=== PATIENT | female | born 1950 | race Caucasian/White ===

== ENCOUNTER 2016-10-12 14:43 | Inpatient (IN) | payer MEDICARE ==
[~2016-10-12] VITALS: Ht 165.1 cm; Wt 54.0 kg
[2016-10-12] MEDS ORDERED: ASPIRIN 325 MG TABLET PO ONE (15:00)
--- NOTE | 2016-10-12 15:01 | RAD ---
EXAM: Chest, single view. HISTORY: Chest pain. COMPARISON: None. FINDINGS: A frontal view of the chest is obtained. There is no infiltrate, effusion or pneumothorax. The heart is normal in size. There are large calcified right hilar granulomas. There is a mild mid thoracic superior endplate depression. IMPRESSION: No acute pulmonary finding.
[2016-10-12 15:20] LABS: BASO # 0.1 x10^3/uL (0.0-0.2); BASO % 1 % (0-3); EOS % 1 % (0-3); HEMATOCRIT 43.7 % (36.0-47.0); LYMPH # 1.1 x10^3/uL (1.0-4.8); LYMPH % 10 % (24-48); MEAN CORPUSCULAR HEMOGLOBIN 32 pg (25-35); MEAN CORPUSCULAR HGB CONC 34 g/dL (31-37); MEAN CORPUSCULAR VOLUME 94 fL (79-100); MONO % 8 % (0-9); NEUT % 81 % (31-73); PLATELET COUNT 289 x10^3/uL (140-400); RED BLOOD COUNT 4.66 x10^6/uL (3.50-5.40); RED CELL DISTRIBUTION WIDTH 13.6 % (11.5-14.5); WHITE BLOOD COUNT 11.9 x10^3/uL (4.0-11.0)
[2016-10-12 15:27] LABS: CALCIUM 9.2 mg/dL (8.5-10.1); CREATININE 0.7 mg/dL (0.6-1.0); POTASSIUM 3.8 mmol/L (3.5-5.1)
--- NOTE | 2016-10-12 15:36 | PHYS DOC ---
Past Medical History Past Medical History: NC, Pneumonia Past Surgical History: Appendectomy, Hysterectomy, Other Additional Past Surgical Histo: amputation 2 toes r foot, r knee ortho x2, Alcohol Use: Heavy Drug Use: None Adult General Chief Complaint Chief Complaint: CHEST PAIN HPI HPI This 66-year-old female who presents with an episode of chest pain just prior to arrival in which she states she felt some more and this and then significant left upper chest pain. EMS was called and administered a full aspirin and nitroglycerin and her pain resolved upon arrival. He currently states she is pain-free at this time. She states her pain was similar to previous pain she had with her NC back in 2004. Patient underwent a heart catheterization at that time that did reveal some sclerosed posterior vessels but she did not have any stents placed. She did not follow-up with cardiology after this event and states she was otherwise well and chest pain-free until this episode. Patient does state she currently smokes. She does have history of hypertension as well. Review of Systems Review of Systems Constitutional: Denies fever or chills [] Eyes: Denies change in visual acuity, redness, or eye pain [] HENT: Denies nasal congestion or sore throat [] Respiratory: Denies cough or shortness of breath [] Cardiovascular: No additional information not addressed in HPI [] GI: Denies abdominal pain, nausea, vomiting, bloody stools or diarrhea [] : Denies dysuria or hematuria [] Musculoskeletal: Denies back pain or joint pain [] Integument: Denies rash or skin lesions [] Neurologic: Denies headache, focal weakness or sensory changes [] Endocrine: Denies polyuria or polydipsia [] Current Medications Current Medications Current Medications Medications (Trade) Dose Ordered Sig/Nicole Start Time Stop Time Status Last Admin Dose Admin Acetaminophen (Tylenol) 650 mg PRN Q4HRS PRN 10/12/16 16:00 10/13/16 15:59 Acetaminophen/ Hydrocodone Bitart (Lortab 5/325) 1 tab PRN TID PRN 10/12/16 16:15 Aspirin 325 mg 325 mg 1X ONCE 10/12/16 15:00 10/12/16 15:01 DC Docusate Sodium (Colace) 100 mg DAILY 10/13/16 09:00 Heparin Sodium (Porcine) 1,300 unit PRN Q6HRS PRN 10/12/16 16:00 10/12/16 16:19 1,300 UNIT Heparin Sodium/ Dextrose 500 ml @ 0 mls/hr CONT PRN 10/12/16 16:00 10/12/16 16:22 12 MLS/HR Info (Anti-Coagulation Monitoring By Pharmacy) 1 each PRN DAILY PRN 10/12/16 16:00 Metoprolol Tartrate (Lopressor) 12.5 mg BID 10/12/16 21:00 Morphine Sulfate 2 mg PRN Q2HR PRN 10/12/16 16:15 Nitroglycerin (Nitrostat) 0.4 mg PRN Q5MIN PRN 10/12/16 16:00 10/13/16 15:59 Ondansetron HCl (Zofran) 4 mg PRN Q6HRS PRN 10/12/16 16:07 Ondansetron HCl 4 mg 4 mg PRN Q8HRS PRN 10/12/16 16:00 10/12/16 16:10 DC Sodium Chloride (Iv Sodium Chloride 0.9% 1000ml Bag) 1,000 ml @ 100 mls/hr Q10H 10/12/16 16:30 10/13/16 16:29 Allergies Allergies Allergies Coded Allergies Type Severity Reaction Last Updated Verified Sulfa (Sulfonamide Antibiotics) Allergy Intermediate 10/12/16 Yes Physical Exam Physical Exam Constitutional: Well developed, well nourished, no acute distress, non-toxic appearance. [] HENT: Normocephalic, atraumatic, bilateral external ears normal, oropharynx moist, no oral exudates, nose normal. [] Eyes: PERRLA, EOMI, conjunctiva normal, no discharge. [] Neck: Normal range of motion, no tenderness, supple, no stridor. [] Cardiovascular:Heart rate regular rhythm, no murmur [] Lungs & Thorax: Bilateral breath sounds clear to auscultation [] Abdomen: Bowel sounds normal, soft, no tenderness, no masses, no pulsatile masses. [] Skin: Warm, dry, no erythema, no rash. [] Back: No tenderness, no CVA tenderness. [] Extremities: No tenderness, no cyanosis, no clubbing, ROM intact, no edema. [] Neurologic: Alert and oriented X 3, normal motor function, normal sensory function, no focal deficits noted. [] Psychologic: Affect normal, judgement normal, mood normal. [] Current Patient Data Vital Signs Vital Signs Date Time Temp Pulse Resp B/P Pulse Ox O2 Delivery O2 Flow Rate FiO2 10/12/16 14:51 98.0 70 18 127/72 96 Room Air 98.0 Lab Values Laboratory Tests Test 10/12/16 13:05 White Blood Count 11.9x10^3/uL (4.0-11.0) H Red Blood Count 4.66x10^6/uL (3.50-5.40) Hemoglobin 15.0g/dL (12.0-15.5) Hematocrit 43.7% (36.0-47.0) Mean Corpuscular Volume 94fL (79-100) Mean Corpuscular Hemoglobin 32pg (25-35) Mean Corpuscular Hemoglobin Concent 34g/dL (31-37) Red Cell Distribution Width 13.6% (11.5-14.5) Platelet Count 289x10^3/uL (140-400) Neutrophils (%) (Auto) 81% (31-73) H Lymphocytes (%) (Auto) 10% (24-48) L Monocytes (%) (Auto) 8% (0-9) Eosinophils (%) (Auto) 1% (0-3) Basophils (%) (Auto) 1% (0-3) Neutrophils # (Auto) 9.6x10^3uL (1.8-7.7) H Lymphocytes # (Auto) 1.1x10^3/uL (1.0-4.8) Monocytes # (Auto) 1.0x10^3/uL (0.0-1.1) Eosinophils # (Auto) 0.1x10^3/uL (0.0-0.7) Basophils # (Auto) 0.1x10^3/uL (0.0-0.2) Sodium Level 139mmol/L (136-145) Potassium Level 3.8mmol/L (3.5-5.1) Chloride Level 101mmol/L (98-107) Carbon Dioxide Level 27mmol/L (21-32) Anion Gap 11 (6-14) Blood Urea Nitrogen 11mg/dL (7-20) Creatinine 0.7mg/dL (0.6-1.0) Estimated GFR (Cockcroft-Gault) 84.0 Glucose Level 135mg/dL (70-99) H Calcium Level 9.2mg/dL (8.5-10.1) Troponin I Quantitative 0.542ng/mL (0.000-0.055) Laboratory Tests 10/12/16 13:05 Laboratory Tests 10/12/16 13:05 EKG EKG EKG as interpreted by me shows a sinus rhythm with a rate of 63 bpm. There is no obvious ischemic findings on this EKG. Intervals are normal. There is no ectopy. Radiology/Procedures Radiology/Procedures Portable one view of the chest as interpreted by me does not demonstrate an acute cardiopulmonary process. Course & Med Decision Making Course & Med Decision Making Pertinent Labs and Imaging studies reviewed. (See chart for details) 66-year-old female is having an episode of chest pain. Troponin is elevated at 0.5. Her EKG does not reveal any acute abnormality. Her portable view her chest was also negative for any acute abnormality. I discussed the case with the shopping centre manager, Dr. Crawley, who agreed to start heparin and he will likely perform a heart catheterization in the morning. I additionally ordered metoprolol 12.5 mg twice a day for the patient. Patient is in no acute distress at this time and will be admitted to the [facility] for further evaluation. I discussed the case with the hospitalist, Dr. Tidwell, who agreed to admit the patient for further evaluation and treatment for chest pain and NSTEMI. Dragon Disclaimer Dragon Disclaimer This electronic medical record was generated, in whole or in part, using a voice recognition dictation system. Departure Departure Impression: Primary Impression: Chest pain Additional Impression: NSTEMI (non-ST elevated myocardial infarction) Disposition: ADMITTED INPATIENT Admitting Physician: Alexa Tidwell Condition: STABLE Problem Qualifiers TIN HANNAH DO Oct 12, 2016 15:36
[2016-10-12] MEDS ORDERED: HEPARIN for IV BOLUS 10,000 UNIT/10 ML VIAL. IV PRN (16:00)
[2016-10-12] MEDS ORDERED: NITROGLYCERIN SUBLINGUAL 0.4 MG BOTTLE OF 25. SL PRN (16:00)
[2016-10-12] MEDS ORDERED: ACETAMINOPHEN 325 MG TABLET. PO PRN (16:00)
[2016-10-12] MEDS ORDERED: ONDANSETRON PF 4 MG/2 ML VIAL. IV PRN ×2 (16:00→16:07)
[2016-10-12] MEDS ORDERED: MORPHINE SULFATE 2 MG/ML DISP.SYRIN. IV PRN (16:15)
[2016-10-12] MEDS ORDERED: HYDROCODONE/APAP 5/325MG TABLET. PO PRN (16:15)
--- NOTE | 2016-10-12 16:15 | PDOC1 ---
History and Physical Date of Admission Date of Admission DATE: 10/12/16 TIME: 16:09 Identification/Chief Complaint Chief Complaint chest pains at rest Source Source: Chart review, Patient History of Present Illness History of Present Illness 66 y/o male who had hx MT about 12 yrs ago (2014), had a cardiac cath but no stents placed, but found atherosclerosis and never followed up or took any of the dc meds that she was advised to take, She has been CP free x 10 yrs until today, left sided upper chest pain, felt warm, lightheaded, lasted 20 mins and relieved by nTG and morphine at ER> NO real radiation, happened at rest VS ok Smoker, drinks 3 beers a day, claims has changed her diet, Denies fam hx of ACS or its equivalent (Dm etc) She claims she did not take her dc meds bec she was placed on a statin and she had a "busted liver" from an accident in younger yrs and she knew statin was metabolized in liver, She does not even take a baby asa. She does smoke < 1ppday, 3 beers a day EKG ok, CXR ok, but first CE trop 0.5. Started on heparin gtt given concerning story and risk factors/past hx Past Medical History Cardiovascular: CAD, Hyperlipidemia Past Surgical History Past Surgical History: Other (cardiac cath with no stenting) Family History Family History: No Significant Social History Smoke: <1 pack per day ALCOHOL: heavy Drugs: None Current Problem List Problem List Problems Medical Problems: (1) Chest pain Status: Acute Problems: Current Medications Current Medications Current Medications Aspirin 325 mg 325 mg 1X ONCE PO ; Start 10/12/16 at 15:00; Stop 10/12/16 at 15 :01; Status DC Heparin Sodium/ Dextrose 500 ml @ 0 mls/hr CONT PRN IV SEE I/O RECORD; Start at 16:00 Heparin Sodium (Porcine) 1,300 unit PRN Q6HRS PRN IV FOR UFH LEVEL LESS THAN 0.2; Start 10/12/16 at 16:00 Ondansetron HCl 4 mg 4 mg PRN Q8HRS PRN IV NAUSEA/VOMITING; Start 10/12/16 at 16:00; Stop 10/13/16 at 15:59 Sodium Chloride (Iv Sodium Chloride 0.9% 1000ml Bag) 1,000 ml @ 100 mls/hr Q10H IV ; Start 10/12/16 at 16:30; Stop 10/13/16 at 16:29 Acetaminophen (Tylenol) 650 mg PRN Q4HRS PRN PO FEVER; Start 10/12/16 at 16:00 ; Stop 10/13/16 at 15:59 Nitroglycerin (Nitrostat) 0.4 mg PRN Q5MIN PRN SL CHEST PAIN; Start 10/12/16 at 16:00; Stop 10/13/16 at 15:59 Info (Anti-Coagulation Monitoring By Pharmacy) 1 each PRN DAILY PRN MC SEE COMMENTS; Start 10/12/16 at 16:00 Allergies Allergies: Coded Allergies: Sulfa (Sulfonamide Antibiotics) (Verified Allergy, Intermediate, 10/12/16) ROS General: YES: Appetite, Chills, Fatigue, Malaise, Night Sweats, Other PSYCHOLOGICAL ROS: No: Anxiety, Behavioral Disorder, Concentration difficultie , Decreased libido, Depression, Disorientation, Hallucinations, Hostility, Irritablity, Memory difficulties, Mood Swings, Obsessive thoughts, Other, Physical abuse, Sexual abuse, Sleep disturbances, Suicidal ideation Eyes: No Blurry vision, No Decreased vision, No Double vision, No Dry eyes, No Excessive tearing, No Eye Pain, No Itchy Eyes, No Loss of vision, No Other, No Photophobia, No Scotomata, No Uses contacts, No Uses glasses HEENT: No: Epistaxis, Heacaches, Hearing change, Nasal congestion, Nasal discharge, Oral lesions, Other, Sinus pain, Sneezing, Snoring, Sore Throat, Tinnitus, Vertigo, Visual Changes, Vocal changes ALLERGY AND IMMUNOLOGY: No: Hives, Insect Bite Sensitivity, Itchy/Watery Eyes, Nasal Congestion, Other, Post Nasal Drip, Seasonal Allergies Breast: No New/Changing Breast Lumps, No Nipple changes, No Nipple discharge, No Other Respiratory: No: Cough, Hemoptysis, Orthopnea, Other, Pleuritic Pain, SOB with excertion, Shortness of breath, Sputum Changes, Stridor, Tachypnea, Wheezing Cardiovascular: yes Chest Pain, yes Lt Headedness Gastrointestinal: No Abdominal Pain, No Constipation, No Diarrhea, No Hematochezia, No Melena, No Nausea, No Other, No Vomiting Genitourinary: No , No , No , No , No , No , No , No Discharge, No Dysuria, No Flank Pain, No Frequency, No Hematuria, No Incontinence, No Other, No Pain, No Retention, No Urgency Musculoskeletal: No Gait Disturbance, No Joint Pain, No Joint Stiffness, No Joint Swelling, No Muscle Pain, No Muscular Weakness, No Other, No Pain In:, No Swelling In: Neurological: No Behavorial Changes, No Bowel/Bladder ControlChng, No Confusion , No Dizziness, No Gait Disturbance, No Headaches, No Impaired Coord/balance, No Memory Loss, No Numbness/Tingling, No Other, No Seizures, No Speech Problems , No Tremors, No Visual Changes, No Weakness Skin: No Acne, No Dry Skin, No Eczema, No Hair Changes, No Lumps, No Mole Changes, No Mottling, No Nail Changes, No Other, No Pruritus, No Rash, No Skin Lesion Changes Physical Exam General: Alert, Oriented X3, Cooperative, No acute distress HEENT: Atraumatic, PERRLA, EOMI, Mucous membr. moist/pink Lungs: Clear to auscultation, Normal air movement Heart: S1S2, RRR, no thrills, no rubs, no gallops, no murmurs Cardiovascular: S1, S2 Breasts: Normal Rectal Exam: not examined PELVIC: Nml ext genitalia Extremities: No clubbing, No cyanosis, No edema, Normal pulses, No tenderness/ swelling Skin: No rashes, No breakdown, No significant lesion Neuro: Normal gait, Normal speech, Strength at 5/5 X4 ext, Normal tone, Sensation intact, Cranial nerves 3-12 NL, Reflexes 2+ Psych/Mental Status: Mental status NL, Mood NL Vitals Vitals Vital Signs Date Time Temp Pulse Resp B/P Pulse Ox O2 Delivery O2 Flow Rate FiO2 10/12/16 14:51 98.0 70 18 127/72 96 Room Air 98.0 Labs Labs Laboratory Tests Test 10/12/16 13:05 White Blood Count 11.9x10^3/uL (4.0-11.0) Red Blood Count 4.66x10^6/uL (3.50-5.40) Hemoglobin 15.0g/dL (12.0-15.5) Hematocrit 43.7% (36.0-47.0) Mean Corpuscular Volume 94fL (79-100) Mean Corpuscular Hemoglobin 32pg (25-35) Mean Corpuscular Hemoglobin Concent 34g/dL (31-37) Red Cell Distribution Width 13.6% (11.5-14.5) Platelet Count 289x10^3/uL (140-400) Neutrophils (%) (Auto) 81% (31-73) Lymphocytes (%) (Auto) 10% (24-48) Monocytes (%) (Auto) 8% (0-9) Eosinophils (%) (Auto) 1% (0-3) Basophils (%) (Auto) 1% (0-3) Neutrophils # (Auto) 9.6x10^3uL (1.8-7.7) Lymphocytes # (Auto) 1.1x10^3/uL (1.0-4.8) Monocytes # (Auto) 1.0x10^3/uL (0.0-1.1) Eosinophils # (Auto) 0.1x10^3/uL (0.0-0.7) Basophils # (Auto) 0.1x10^3/uL (0.0-0.2) Sodium Level 139mmol/L (136-145) Potassium Level 3.8mmol/L (3.5-5.1) Chloride Level 101mmol/L (98-107) Carbon Dioxide Level 27mmol/L (21-32) Anion Gap 11 (6-14) Blood Urea Nitrogen 11mg/dL (7-20) Creatinine 0.7mg/dL (0.6-1.0) Estimated GFR (Cockcroft-Gault) 84.0 Glucose Level 135mg/dL (70-99) Calcium Level 9.2mg/dL (8.5-10.1) Troponin I Quantitative 0.542ng/mL (0.000-0.055) Laboratory Tests Test 10/12/16 13:05 White Blood Count 11.9x10^3/uL (4.0-11.0) Red Blood Count 4.66x10^6/uL (3.50-5.40) Hemoglobin 15.0g/dL (12.0-15.5) Hematocrit 43.7% (36.0-47.0) Mean Corpuscular Volume 94fL (79-100) Mean Corpuscular Hemoglobin 32pg (25-35) Mean Corpuscular Hemoglobin Concent 34g/dL (31-37) Red Cell Distribution Width 13.6% (11.5-14.5) Platelet Count 289x10^3/uL (140-400) Neutrophils (%) (Auto) 81% (31-73) Lymphocytes (%) (Auto) 10% (24-48) Monocytes (%) (Auto) 8% (0-9) Eosinophils (%) (Auto) 1% (0-3) Basophils (%) (Auto) 1% (0-3) Neutrophils # (Auto) 9.6x10^3uL (1.8-7.7) Lymphocytes # (Auto) 1.1x10^3/uL (1.0-4.8) Monocytes # (Auto) 1.0x10^3/uL (0.0-1.1) Eosinophils # (Auto) 0.1x10^3/uL (0.0-0.7) Basophils # (Auto) 0.1x10^3/uL (0.0-0.2) Sodium Level 139mmol/L (136-145) Potassium Level 3.8mmol/L (3.5-5.1) Chloride Level 101mmol/L (98-107) Carbon Dioxide Level 27mmol/L (21-32) Anion Gap 11 (6-14) Blood Urea Nitrogen 11mg/dL (7-20) Creatinine 0.7mg/dL (0.6-1.0) Estimated GFR (Cockcroft-Gault) 84.0 Glucose Level 135mg/dL (70-99) Calcium Level 9.2mg/dL (8.5-10.1) Troponin I Quantitative 0.542ng/mL (0.000-0.055) VTE Prophylaxis Ordered VTE Prophylaxis Devices: Yes VTE Pharmacological Prophylaxi: Yes Assessment/Plan Assessment/Plan 1. Unstable Angina 2. Possible NSTEMI 3. Known CAD with no ff up and no meds at home PLAN: [facility] admit Cycle CE Agree with heparin gtt [facility]INTAN protocol Stool softener CArds consult NPO post MN in case cath Check lipids Dw pt and ER Seen at ER DAVIN DUKES MD Oct 12, 2016 16:15
[2016-10-12] MEDS: HEPARIN 25,000UTS/500ML PREMIX 500 ML IV PRN (16:22)
[2016-10-12 16:54] LABS: CHOLESTEROL/HDL RATIO 2.6
--- NOTE | 2016-10-12 17:44 | ACF ---
Admission Forms Criteria CARDIOLOGY GRG Clinical Indications for Admission to Inpatient Care ( Place 'X' for any and all applicable criteria): Hospital admission is needed for appropriate care of the patient because of ANY ONE of the following (1): [ ] I. Hemodynamic instability as indicated by ALL of the following (1)(2)(3) (4)(5) [ ]a) Vital signs or other findings not as expected for chronic patient condition or baseline [ ]b) Instability indicated by ANY ONE of the following: [ ]i) Hypotension [ ]ii) Symptomatic Tachycardia unresponsive to treatment ( e.g., analgesia, fluids, sedation as indicated) [ ]iii) Inadequate perfusion indicated by ANY ONE of the following: [ ] 1) Lactic acidosis (> 2 mmol/L) [ ] 2) New abnormal capillary refill (> 3 seconds) [ ] 3) Reduced urine output [ ] 4) New altered mental status [ ]iv) Orthostatic vital sign changes unresponsive to treatment (e.g., fluids) [ ]v) IV inotropic or vasopressor medication required to maintain adequate blood pressure or perfusion [ ] II. Severe heart failure as indicated by ANY ONE of the following(17)(18) [ ]a) Respiratory distress [ ]b) Hypotension [ ]c) Anasarca (refractory to outpatient therapy) [ ]d) Cardiac arrhythmias of immediate concern [ ]e) Myocardial ischemia [ ] III. Cardiac arrhythmias or findings of immediate concern indicated by ANY ONE of the following (19)(20): [ ] a) Heart rhythms that are inherently dangerous or unstable indicated by ANY ONE of the following (21)(22)(23): [ ] i) Resuscitated ventricular fibrillation or cardiac arrest [ ] ii) Ventricular escape rhythm [ ] iii) Sustained ventricular tachycardia (30 seconds or more of ventricular rhythm at greater than 100 beats per minute) [ ] iv) Nonsustained ventricular tachycardia and ANY ONE of the following: [ ] 1) Suspected cardiac ischemia as cause or consequence of ventricular tachycardia [ ] 2) In setting of acute myocarditis [ ] b) Unstable cardiac conduction defects indicated by ANY ONE of the following(23)(24)(25) [ ] i) Type II second-degree atrioventricular block [ ]ii) Third-degree atrioventricular block [ ]iii) New-onset left bundle branch block with suspected myocardial ischemia [ ]c) Any heart rhythm and ANY ONE of the following (21)(22)(26)(27) (28) [ ] i) Continuous long-term ECG monitoring needed (e.g., initiation of drug requiring monitoring for more than 24 hours) [ ] ii) Patient has automatic implanted cardioverter defibrillator that is repeatedly firing, malfunctioning, or in need of immediate adjustment of settings beyond the scope of ambulatory or observation care [ ]d) Heart rhythms of concern due to ANY ONE of the following: [ ] i) Hypotension [ ] ii) Respiratory distress [ ] iii) Association with other significant symptoms (e.g., bradycardia with syncope or ongoing dizziness, supraventricular tachycardia with chest pain (14)(15)(17) [ ] IV. Monitoring for cardiac contusion beyond the scope of observation care needed [A](30)(31)(32) [ ] V. Surgical or device complication (e.g., valve replacement complication , pacemaker dysfunction) (35)(41)(44)(45)(46) [ ] . Inpatient palliative care needed. [B](49) Also use Inpatient Palliative Care Criteria [ ] VII. Nonbacterial thrombotic (marantic) endocarditis (36)(43)(47)(48) [X] VIII. Cardiology condition, symptom, or finding for which emergency and observation care has failed or are not considered appropriate. [ ] IX. Acute valvular disease requiring inpatient as indicated by ANY ONE of the following (41) [ ]a) Acute valvular regurgitation (42) [ ]b) Noninfectious valvulitis (43) [ ]c) Obstructive valve thrombosis [ ]d) Paravalvular leak [ ]e) Other significant valvular disorder remaining after emergency or observation level of care (as appropriate) [ ]X. Pericardial disease requiring inpatient treatment as indicated by ANY ONE of the following (33)(34)(35)(36)(37) [ ]a) Suspected tamponade (38)(39)(40) [ ]b) Hemopericardium [ ]c) Other significant pericardial disorder remaining after emergency or observation level of care (as appropriate) [ ] XI. Cardiac ischemia beyond scope of emergency and observation care. [ ] XII. Hypertension requiring inpatient treatment as indicated by ANY ONE of the following (6)(7)(8) [ ]a) SBP greater than 220 mm Hg or DBP greater than 120 mmHg despite treatment [ ]b) SBP greater than 140 mm Hg or DBP greater than 100 mm Hg with evidence of acute end organ damage as indicated by ANY ONE of the following [ ] i) Encephalopathy [ ] ii) Acute renal failure as indicated by new onset of ANY ONE of the following (9)(10)(11)(12)(13) [ ]1) 3-fold rise in serum creatinine from baseline [ ]2) Serum creatinine greater than 4 mg/dL ( 354 micromoles/L) with acute rise greater than 0.5 mg/dL (44.2 micromoles/L) [ ]3) Reduction of more than 75% in estimated glomerular filtration rate from baseline [ ]4) Estimated glomerular filtration rate less than 35 mL/min/1.73m2 (0.59 mL/sec/1.73m2) in child up to 18 years of age [ ]5) Cessation of urine output indicated by ALL of the following [ ]A. Adequate volume status [ ]B. Inadequate urine output as indicated by ANY ONE of the following [ ]a. Urine output less than 0.3 mL/kg/hr for 24 hours [ ]b. Anuria (urine output less than 0.1 mL/kg/hr) for 12 hours [ ] iii) Aortic dissection [ ] iv) Myocardial Ischemia [ ] v) Left ventricular heart failure [ ]vi) Retinal Hemorrhage [ ]vii) Other significant finding [ ]c) Hypertension in child requiring inpatient treatment as indicated by ALL of the following(14)(15)(16) [ ] i) Outpatient treatment not effective, not available, or not appropriate [ ]ii) SBP or DBP greater than 95th percentile for age [ ]iii) Evidence of acute end organ damage as indicated by ANY ONE of the following [ ]1) Altered mental status [ ]2) Acute renal failure as indicated by new onset of ANY ONE of the following(9)(10)(11)(12)(13) [ ]A. 3-fold rise in serum creatinine from baseline [ ]B. Serum creatinine greater than 4 mg/dL (354 micromoles/L) with acute rise greater than 0.5 mg/dL (44.2 micromoles/L) [ ]C. Reduction of more than 75% in estimated glomerular filtration rate from baseline [ ]D. Estimated glomerular filtration rate less than 35 mL/min/1.73m2 (0.59 mL/sec/1.73m2) in child up to 18 years of age [ ]E. Cessation of urine output indicated by ALL of the following [ ]a. Adequate volume status [ ]b. Inadequate urine output as indicated by ANY ONE of the following [ ]i) Urine output less than 0.3 mL/kg/hr for 24 hours [ ]ii) Anuria ( urine output less than 0.1 mL/kg/hr) for 12 hours [ ]3) Severe headache [ ]4) Visual disturbance [ ]5) Retinal hemorrhage [ ]6) Other significant finding [ ]XIII. Complications of transplanted heart indicated by ANY ONE of the following(61): [ ]a) Acute graft rejection requiring inpatient management (eg, intravenous immunosuppression)(62)(63) [ ]b) Acute graft heart failure indicated by ANY ONE of the following(64): [ ]i) Hemodynamic instability [ ]ii) Cardiac arrhythmias of immediate concern [ ]iii) Pulmonary edema that is very severe (eg, mechanical ventilation needed, imminent or likely, need for 100% oxygen to keep oxygen saturation above 90%) [ ]iv) Pulmonary edema that is persistent as indicated by ALL of the following: [ ]1) New need for oxygen therapy to keep oxygen saturation above 90% (or increased FiO2 need from baseline) [ ]2) Has not improved sufficiently with emergency department or observation care IV diuretics or other heart failure treatments[E] [ ]v) Altered mental status that is severe or persistent [ ]vi) Increased creatinine (new on laboratory test) with reduction of more than 50% in estimated glomerular filtration rate from baseline [ ]vii) Progressively (ongoing) rising creatinine (known from past laboratory test) with reduction of more than 25% in estimated glomerular filtration rate from baseline [ ]viii) Acute renal failure [ ]ix) Acute peripheral ischemia (eg, examination shows pulseless, cool, mottled, or cyanotic extremity) [ ]x) Pulmonary artery catheter monitoring needed [ ]xi) Other sign or symptom of heart failure requiring inpatient treatment (ie, too severe or not responsive to outpatient and observation care treatment) [ ]c) Infection requiring inpatient management (eg, Hemodynamic instability, need for intravenous antimicrobial treatment)(66)(67)(68)(69)(70) [ ]d) Cardiac allograft vasculopathy requiring inpatient management ( eg evidence of cardiac ischemia)(71) [ ]e) Other complication of transplanted heart (eg, stroke, severe pulmonary hypertension, severe valvular dysfunction) requiring inpatient management(72) The original [facility] content created by [facility] has been revised. The portions of the content which have been revised are identified through the use of italic text or in bold, and [facility] has neither reviewed nor approved the modified material. All other unmodified content is copyright [facility]. Please see references footnoted in the original [facility] edition 2016 Admission Criteria Met?: Yes BRYAN ANGELA Oct 12, 2016 17:44
[2016-10-12 20:00] VITALS: BP 165/70
[2016-10-12] MEDS: IV NORMAL SALINE 1000ML BAG 1,000 ML IV SCH (21:45)
[2016-10-12] MEDS: METOPROLOL TART IMMED RELEASE 25 MG TABLET PO SCH (21:45)
[2016-10-12 23:50] VITALS: BP 122/52
[2016-10-13] VITALS (13 sets, daily range): BP systolic 106–136; BP diastolic 56–81
[2016-10-13] MEDS: IV NORMAL SALINE 1000ML BAG 1,000 ML IV SCH ×2 (02:30→12:30)
[2016-10-13 05:11] LABS: BASO % 0 % (0-3); EOS % 1 % (0-3); HEMATOCRIT 42.3 % (36.0-47.0); HEMOGLOBIN 14.4 g/dL (12.0-15.5); LYMPH # 1.5 x10^3/uL (1.0-4.8); LYMPH % 12 % (24-48); MEAN CORPUSCULAR HEMOGLOBIN 32 pg (25-35); MEAN CORPUSCULAR HGB CONC 34 g/dL (31-37); MEAN CORPUSCULAR VOLUME 95 fL (79-100); MONO % 8 % (0-9); NEUT % 79 % (31-73); PLATELET COUNT 279 x10^3/uL (140-400); RED BLOOD COUNT 4.48 x10^6/uL (3.50-5.40); RED CELL DISTRIBUTION WIDTH 13.7 % (11.5-14.5); WHITE BLOOD COUNT 12.5 x10^3/uL (4.0-11.0)
[2016-10-13 05:47] LABS: CALCIUM 8.3 mg/dL (8.5-10.1); CREATININE 0.6 mg/dL (0.6-1.0); GFR 100.3
--- NOTE | 2016-10-13 06:33 | EKG ---
[facility] [address] [place] [address] Test Date: 2016-10-12 Test Time: 14:49:32 Pat Name: GARRICK GOMES Department: Room: 262 1 Gender: F Wood Cabinet Finisher: : 1950 Requested By: TIN HANNAH Order Number: [id number] Reading MD: Rudy Merlos Measurements Intervals [place] Rate: 63 P: 56 SD: 144 QRS: 42 QRSD: 76 T: 21 QT: 388 QTc: 400 Interpretive Statements SINUS RHYTHM Electronically Signed On 10-13-2016 10:41:35 DRILLING MANAGER by Rudy Merlos
[2016-10-13] MEDS ORDERED: IOHEXOL 300 MG/ML 100ML VIAL. ONE ×2 (08:36→10:45)
[2016-10-13] MEDS ORDERED: LIDOCAINE 2% 20 ML VIAL. ONE (08:36)
[2016-10-13] MEDS: DOCUSATE SODIUM 100 MG CAPSULE PO SCH (09:00)
[2016-10-13] MEDS: METOPROLOL TART IMMED RELEASE 25 MG TABLET PO SCH ×2 (09:17→21:45)
[2016-10-13] MEDS ORDERED: NITROGLYCERIN 200 MCG/2 ML SYRINGE FOR CATH/VASC LAB. ONE ×3 (09:26→10:45)
[2016-10-13] MEDS ORDERED: VERAPAMIL 5 MG/2 ML VIAL. ONE (09:26)
[2016-10-13] MEDS ORDERED: HEPARIN for IV BOLUS 10,000 UNIT/10 ML VIAL. ONE (09:26)
[2016-10-13] MEDS ORDERED: MIDAZOLAM HCL/PF 5 MG/5 ML VIAL ONE (09:26)
[2016-10-13] MEDS ORDERED: FENTANYL PF 250 MCG/5 ML VIAL. ONE (09:26)
--- NOTE | 2016-10-13 09:28 | EKG ---
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
[2016-10-13] MEDS ORDERED: NITROGLYCERIN 200 MCG/2 ML SYRINGE FOR CATH/VASC LAB. IART ONE ×2 (09:45→10:45)
[2016-10-13] MEDS ORDERED: LIDOCAINE 2% 20 ML VIAL. IJ ONE (09:45)
[2016-10-13] MEDS ORDERED: MIDAZOLAM HCL/PF 5 MG/5 ML VIAL IV ONE (09:45)
[2016-10-13] MEDS ORDERED: VERAPAMIL 5 MG/2 ML VIAL. IART ONE (09:45)
[2016-10-13] MEDS ORDERED: FENTANYL PF 250 MCG/5 ML VIAL. IV ONE (09:45)
[2016-10-13] MEDS ORDERED: HEPARIN for IV BOLUS 10,000 UNIT/10 ML VIAL. IART ONE (09:45)
--- NOTE | 2016-10-13 09:47 | PDOC ---
MODERATE SEDATION ASSESSMENT RISKS/ALTERNATIVES Risks/Alternatives Risks and alternatives of this type of sedation and procedure discussed with: RISK/ALTERNATIVES: Patient H & P ON CHART H & P H & P on chart and reviewed for co-morbid conditions and appropriate labs. H&P ON CHART: Yes STATUS PREG STATUS ASSESSED: N/A MEDS/ALLERGIES REVIEWED Meds/Allergies Reviewed Medications and Allergies including time and route of recently administered narcotics and sedatives. MEDS/ALLERGIES REVIEWED: Yes ASA RATING ASA RATING: II AIRWAY ASSESSMENT Airway Assessment Airway patency, oral function limitations, presence of caps, crowns, dentures, partials, and ability to extend neck assessed. AIRWAY ASSESSMENT: Yes MALLAMPATI SCORE MALLAMPATI SCORE: II PRE-SEDATION ASSESSMENT PRE-SEDATION ASSESSMENT: Yes BETINA BROCK MD Oct 13, 2016 09:47
[2016-10-13] MEDS ORDERED: BIVALIRUDIN 250 MG VIAL IV ONE ×2 (10:00→10:15)
[2016-10-13] MEDS: ANTI-COAG MONITOR BY PHARMACY. MC PRN ×2 (10:27→10:30)
[2016-10-13] MEDS ORDERED: CLOPIDOGREL BISULFATE 75 MG TABLET ONE (10:50)
[2016-10-13] MEDS ORDERED: ASPIRIN 325 MG TABLET ONE (10:50)
[2016-10-13] MEDS ORDERED: IOHEXOL 300 MG/ML 100ML VIAL. IART ONE (11:00)
[2016-10-13] MEDS ORDERED: CONTRAST GIVEN MC PRN (11:00)
[2016-10-13] MEDS ORDERED: IV 1/2 NORMAL SALINE 1,000 ML IV SCH (11:02)
[2016-10-13] MEDS ORDERED: CLOPIDOGREL BISULFATE 75 MG TABLET PO ONE (11:15)
[2016-10-13] MEDS ORDERED: NITROGLYCERIN SUBLINGUAL 0.4 MG BOTTLE OF 25. SL PRN (11:15)
[2016-10-13] MEDS ORDERED: ASPIRIN 325 MG TABLET PO ONE (11:15)
[2016-10-13] MEDS ORDERED: ACETAMINOPHEN 325 MG TABLET. PO PRN (11:15)
--- NOTE | 2016-10-13 11:34 | PDOC2 ---
HANS DAWSON DITCH TENDER 10/13/16 1134: CARDIAC CONSULT DATE OF CONSULT Date of Consult DATE: 10/13/16 TIME: 11:29 REASON FOR CONSULT Reason for Consult: NSTEMI, Chest Pain REFERRING PHYSICIAN Referring Physician: Dr. Carolina SOURCE Source: Chart review, Patient HISTORY OF PRESENT ILLNESS HISTORY OF PRESENT ILLNESS This is a 66 yo female, with a h/o HTN and NH, who presented with complaints of chest pain. Patient is here visiting family from [place]. Symptoms began yesterday morning. Chest pain located in her left chest. Describes as aching pain. Radiated to her left shoulder and down left arm then eventually around to her back. Associated with left arm numbness/tingling and nausea and vomiting. Reports h/o "stress" MPI in 2004. Underwent cardiac cath at that time; no stents necessary. Denies any dizziness, syncope, palpitations, LE edema, or SOA. No recent cardiac workup or f/u. PAST MEDICAL HISTORY Cardiovascular: HTN, NH Pulmonary: No pertinent hx CENTRAL NERVOUS SYSTEM: Other (no pertinent hx) GI: No pertinent hx Heme/Onc: No pertinent hx Hepatobiliary: No pertinent hx Psych: No pertinent hx Musculoskeletal: Osteoarthritis Infectious disease: No pertinent hx ENT: No pertinent hx Renal/: No pertinent hx Endocrine: No pertinent hx Dermatology: No pertinent hx PAST SURGICAL HISTORY Past Surgical History: Appendectomy, Tonsillectomy, Hysterectomy, Other (bi foot sx) FAMILY HISTORY Family History: Cancer, Diabetes, Hypertension SOCIAL HISTORY Smoke: <1 pack per day ALCOHOL: none Drugs: None Lives: with Family CURRENT MEDICATIONS CURRENT MEDICATIONS Current Medications Medications (Trade) Dose Ordered Sig/Nicole Route PRN Reason Start Time Stop Time Status Last Admin Dose Admin Heparin Sodium/ Dextrose 500 ml @ 0 mls/hr CONT PRN IV SEE I/O RECORD 10/12/16 16:00 10/12/16 16:22 Heparin Sodium (Porcine) 1300 unit 1,300 unit PRN Q6HRS PRN IV FOR UFH LEVEL LESS THAN 0.2 10/12/16 16:00 10/12/16 16:19 Sodium Chloride (Iv Sodium Chloride 0.9% 1000ml Bag) 1,000 ml @ 100 mls/hr Q10H IV 10/12/16 16:30 10/13/16 16:29 10/12/16 21:45 Info (Anti-Coagulation Monitoring By Pharmacy) 1 each PRN DAILY PRN MC SEE COMMENTS 10/12/16 16:00 10/13/16 10:30 Metoprolol Tartrate (Lopressor) 12.5 mg BID PO 10/12/16 21:00 10/13/16 09:17 Nitroglycerin (Nitroglycerin) 200 mcg 1X ONCE IART 10/13/16 09:45 10/13/16 09:47 DC 10/13/16 09:45 Verapamil HCl (Verapamil) 2.5 mg 1X ONCE IART 10/13/16 09:45 10/13/16 09:47 DC 10/13/16 09:45 Heparin Sodium (Porcine) 2,500 unit 1X ONCE IART 10/13/16 09:45 10/13/16 09:47 DC 10/13/16 09:45 Heparin Sodium/ Sodium Chloride 1,000 unit 1X ONCE IART 10/13/16 09:45 10/13/16 09:47 DC 10/13/16 09:45 Midazolam HCl (Versed) 5 mg 1X ONCE IV 10/13/16 09:45 10/13/16 09:47 DC 10/13/16 09:45 Fentanyl Citrate (Fentanyl 5ml Vial) 250 mcg 1X ONCE IV 10/13/16 09:45 10/13/16 09:47 DC 10/13/16 09:45 Lidocaine HCl 20 ml 1X ONCE IJ 10/13/16 09:45 10/13/16 09:47 DC 10/13/16 09:45 Bivalirudin (Angiomax) 250 mg 1X ONCE IV 10/13/16 10:15 10/13/16 10:16 DC 10/13/16 10:15 Nitroglycerin (Nitroglycerin) 200 mcg 1X ONCE IART 10/13/16 10:45 10/13/16 10:46 DC 10/13/16 10:44 Iohexol (Omnipaque 300 Mg/ml) 100 ml 1X ONCE IART 10/13/16 11:00 10/13/16 11:01 DC 10/13/16 10:57 Clopidogrel Bisulfate (Plavix) 600 mg 1X ONCE PO 10/13/16 11:15 10/13/16 11:16 DC 10/13/16 10:57 Aspirin (Tarsha Aspirin) 325 mg 1X ONCE PO 10/13/16 11:15 10/13/16 11:16 DC 10/13/16 10:56 ALLERGIES ALLERGIES: Coded Allergies: Sulfa (Sulfonamide Antibiotics) (Verified Allergy, Intermediate, 10/12/16) cephalexin (Verified Allergy, Unknown, 10/13/16) milk (Verified Allergy, Unknown, 10/13/16) ROS Review of System 14 point ROS conducted with pertinent positives note above in HPI PHYSICAL EXAM General: Alert, Oriented X3, Cooperative, No acute distress HEENT: Atraumatic, PERRLA, Mucous membr. moist/pink Lungs: Clear to auscultation, Normal air movement Heart: Regular rate, Normal S1, Normal S2 Abdomen: No tenderness Extremities: No edema, Normal pulses, Other (right radial arteriotomy site soft , clean, and dry. TR band intact) Skin: No breakdown, No significant lesion Neuro: Normal speech, Sensation intact Psych/Mental Status: Mental status NL, Mood NL MUSCULOSKELETAL: Osteoarthritic changes both hands VITALS VITALS Vital Signs Date Time Temp Pulse Resp B/P Pulse Ox O2 Delivery O2 Flow Rate FiO2 10/13/16 11:18 97.4 58 18 135/63 96 Room Air 97.4 LABS Lab: Laboratory Tests Test 10/12/16 13:05 10/12/16 20:00 10/12/16 21:40 10/13/16 02:07 White Blood Count 11.9x10^3/uL (4.0-11.0) Red Blood Count 4.66x10^6/uL (3.50-5.40) Hemoglobin 15.0g/dL (12.0-15.5) Hematocrit 43.7% (36.0-47.0) Mean Corpuscular Volume 94fL (79-100) Mean Corpuscular Hemoglobin 32pg (25-35) Mean Corpuscular Hemoglobin Concent 34g/dL (31-37) Red Cell Distribution Width 13.6% (11.5-14.5) Platelet Count 289x10^3/uL (140-400) Neutrophils (%) (Auto) 81% (31-73) Lymphocytes (%) (Auto) 10% (24-48) Monocytes (%) (Auto) 8% (0-9) Eosinophils (%) (Auto) 1% (0-3) Basophils (%) (Auto) 1% (0-3) Neutrophils # (Auto) 9.6x10^3uL (1.8-7.7) Lymphocytes # (Auto) 1.1x10^3/uL (1.0-4.8) Monocytes # (Auto) 1.0x10^3/uL (0.0-1.1) Eosinophils # (Auto) 0.1x10^3/uL (0.0-0.7) Basophils # (Auto) 0.1x10^3/uL (0.0-0.2) Sodium Level 139mmol/L (136-145) Potassium Level 3.8mmol/L (3.5-5.1) Chloride Level 101mmol/L (98-107) Carbon Dioxide Level 27mmol/L (21-32) Anion Gap 11 (6-14) Blood Urea Nitrogen 11mg/dL (7-20) Creatinine 0.7mg/dL (0.6-1.0) Estimated GFR (Cockcroft-Gault) 84.0 Glucose Level 135mg/dL (70-99) Calcium Level 9.2mg/dL (8.5-10.1) Troponin I Quantitative 0.542ng/mL (0.000-0.055) 2.563ng/mL (0.000-0.055) 1.130ng/mL (0.000-0.055) Triglycerides Level 174mg/dL (0-150) Cholesterol Level 179mg/dL (0-200) LDL Cholesterol, Calculated 75mg/dL (0-100) VLDL Cholesterol, Calculated 35mg/dL (0-40) HDL Cholesterol 69mg/dL (40-60) Cholesterol/HDL Ratio 2.6 Heparin Anti-Xa Act, Unfractionated 0.21IU/mL (0.30-0.70) Test 10/13/16 04:33 White Blood Count 12.5x10^3/uL (4.0-11.0) Red Blood Count 4.48x10^6/uL (3.50-5.40) Hemoglobin 14.4g/dL (12.0-15.5) Hematocrit 42.3% (36.0-47.0) Mean Corpuscular Volume 95fL (79-100) Mean Corpuscular Hemoglobin 32pg (25-35) Mean Corpuscular Hemoglobin Concent 34g/dL (31-37) Red Cell Distribution Width 13.7% (11.5-14.5) Platelet Count 279x10^3/uL (140-400) Neutrophils (%) (Auto) 79% (31-73) Lymphocytes (%) (Auto) 12% (24-48) Monocytes (%) (Auto) 8% (0-9) Eosinophils (%) (Auto) 1% (0-3) Basophils (%) (Auto) 0% (0-3) Neutrophils # (Auto) 9.9x10^3uL (1.8-7.7) Lymphocytes # (Auto) 1.5x10^3/uL (1.0-4.8) Monocytes # (Auto) 0.9x10^3/uL (0.0-1.1) Eosinophils # (Auto) 0.2x10^3/uL (0.0-0.7) Basophils # (Auto) 0.0x10^3/uL (0.0-0.2) Heparin Anti-Xa Act, Unfractionated 0.27IU/mL (0.30-0.70) Sodium Level 142mmol/L (136-145) Potassium Level 4.0mmol/L (3.5-5.1) Chloride Level 106mmol/L (98-107) Carbon Dioxide Level 27mmol/L (21-32) Anion Gap 9 (6-14) Blood Urea Nitrogen 12mg/dL (7-20) Creatinine 0.6mg/dL (0.6-1.0) Estimated GFR (Cockcroft-Gault) 100.3 Glucose Level 143mg/dL (70-99) Calcium Level 8.3mg/dL (8.5-10.1) ASSESSMENT/PLAN ASSESSMENT/PLAN 1. Chest Pain, CAD Trop peak 2.563. Check echo s/p PCI/CHRISTINA. CP resolved Secondary prevention measures. DAPT with ASA and Plavix D/c heparin gtt in am. Risk stratification modification Cardiac rehab referral 2. HTN well-controlled consider adding low-dose GREG in am depending up BP trend. 3. HLD LDL= 75 statin therapy 4. Tobaccoism smoking cessation discussed and encouraged Problems: BETINA BROCK MD 10/13/16 1558: CARDIAC CONSULT ALLERGIES ALLERGIES: Coded Allergies: Sulfa (Sulfonamide Antibiotics) (Verified Allergy, Intermediate, 10/12/16) cephalexin (Verified Allergy, Unknown, 10/13/16) milk (Verified Allergy, Unknown, 10/13/16) ASSESSMENT/PLAN ASSESSMENT/PLAN Patient seen and examined. Agree with STOCKBROKING DEALER's assessment and plan. Chest pain with typical features and troponin level elevated consistent with non-STEMI. Cardiac catheterization showed significant stenosis involving left anterior descending artery was successfully treated with drug-eluting stent. Continue dual and updated therapy. Importance of smoking cessation reemphasized. Thank you for your consultation Problems: HANS DAWSON APRN Oct 13, 2016 11:34 BETINA BROCK MD Oct 13, 2016 15:58
--- NOTE | 2016-10-13 11:53 | PDOC ---
PROGRESS NOTES Chief Complaint Chief Complaint 1. Unstable Angina 2. CAD s/p PCI 2 stents to LAD (10/13) 3. Hyper TG History of Present Illness History of Present Illness Just had cardiac cath via R wrist 2 stents needed VS ok TG elevated 179 PLAn: Follow cards recs Chau RN Vitals Vitals Vital Signs Date Time Temp Pulse Resp B/P Pulse Ox O2 Delivery O2 Flow Rate FiO2 10/13/16 11:18 97.4 58 18 135/63 96 Room Air 97.4 Physical Exam General: Alert, Oriented X3, Cooperative Heart: Regular rate, Normal S1, Normal S2 Extremities: No clubbing, No cyanosis, No edema, Normal pulses, No tenderness/ swelling Skin: No breakdown Labs LABS Laboratory Tests Test 10/12/16 13:05 10/12/16 20:00 10/12/16 21:40 10/13/16 02:07 White Blood Count 11.9x10^3/uL (4.0-11.0) Red Blood Count 4.66x10^6/uL (3.50-5.40) Hemoglobin 15.0g/dL (12.0-15.5) Hematocrit 43.7% (36.0-47.0) Mean Corpuscular Volume 94fL (79-100) Mean Corpuscular Hemoglobin 32pg (25-35) Mean Corpuscular Hemoglobin Concent 34g/dL (31-37) Red Cell Distribution Width 13.6% (11.5-14.5) Platelet Count 289x10^3/uL (140-400) Neutrophils (%) (Auto) 81% (31-73) Lymphocytes (%) (Auto) 10% (24-48) Monocytes (%) (Auto) 8% (0-9) Eosinophils (%) (Auto) 1% (0-3) Basophils (%) (Auto) 1% (0-3) Neutrophils # (Auto) 9.6x10^3uL (1.8-7.7) Lymphocytes # (Auto) 1.1x10^3/uL (1.0-4.8) Monocytes # (Auto) 1.0x10^3/uL (0.0-1.1) Eosinophils # (Auto) 0.1x10^3/uL (0.0-0.7) Basophils # (Auto) 0.1x10^3/uL (0.0-0.2) Sodium Level 139mmol/L (136-145) Potassium Level 3.8mmol/L (3.5-5.1) Chloride Level 101mmol/L (98-107) Carbon Dioxide Level 27mmol/L (21-32) Anion Gap 11 (6-14) Blood Urea Nitrogen 11mg/dL (7-20) Creatinine 0.7mg/dL (0.6-1.0) Estimated GFR (Cockcroft-Gault) 84.0 Glucose Level 135mg/dL (70-99) Calcium Level 9.2mg/dL (8.5-10.1) Troponin I Quantitative 0.542ng/mL (0.000-0.055) 2.563ng/mL (0.000-0.055) 1.130ng/mL (0.000-0.055) Triglycerides Level 174mg/dL (0-150) Cholesterol Level 179mg/dL (0-200) LDL Cholesterol, Calculated 75mg/dL (0-100) VLDL Cholesterol, Calculated 35mg/dL (0-40) HDL Cholesterol 69mg/dL (40-60) Cholesterol/HDL Ratio 2.6 Heparin Anti-Xa Act, Unfractionated 0.21IU/mL (0.30-0.70) Test 10/13/16 04:33 White Blood Count 12.5x10^3/uL (4.0-11.0) Red Blood Count 4.48x10^6/uL (3.50-5.40) Hemoglobin 14.4g/dL (12.0-15.5) Hematocrit 42.3% (36.0-47.0) Mean Corpuscular Volume 95fL (79-100) Mean Corpuscular Hemoglobin 32pg (25-35) Mean Corpuscular Hemoglobin Concent 34g/dL (31-37) Red Cell Distribution Width 13.7% (11.5-14.5) Platelet Count 279x10^3/uL (140-400) Neutrophils (%) (Auto) 79% (31-73) Lymphocytes (%) (Auto) 12% (24-48) Monocytes (%) (Auto) 8% (0-9) Eosinophils (%) (Auto) 1% (0-3) Basophils (%) (Auto) 0% (0-3) Neutrophils # (Auto) 9.9x10^3uL (1.8-7.7) Lymphocytes # (Auto) 1.5x10^3/uL (1.0-4.8) Monocytes # (Auto) 0.9x10^3/uL (0.0-1.1) Eosinophils # (Auto) 0.2x10^3/uL (0.0-0.7) Basophils # (Auto) 0.0x10^3/uL (0.0-0.2) Heparin Anti-Xa Act, Unfractionated 0.27IU/mL (0.30-0.70) Sodium Level 142mmol/L (136-145) Potassium Level 4.0mmol/L (3.5-5.1) Chloride Level 106mmol/L (98-107) Carbon Dioxide Level 27mmol/L (21-32) Anion Gap 9 (6-14) Blood Urea Nitrogen 12mg/dL (7-20) Creatinine 0.6mg/dL (0.6-1.0) Estimated GFR (Cockcroft-Gault) 100.3 Glucose Level 143mg/dL (70-99) Calcium Level 8.3mg/dL (8.5-10.1) Review of Systems Review of Systems all 14pt reviewed, denies Assessment and Plan Assessmemt and Plan Problems Medical Problems: (1) Chest pain Status: Acute (2) NSTEMI (non-ST elevated myocardial infarction) Status: Acute Problems: Comment Review of Relevant I have reviewed the following items vianney (where applicable) has been applied. Labs Laboratory Tests Test 10/12/16 13:05 10/12/16 20:00 10/12/16 21:40 10/13/16 02:07 White Blood Count 11.9x10^3/uL (4.0-11.0) Red Blood Count 4.66x10^6/uL (3.50-5.40) Hemoglobin 15.0g/dL (12.0-15.5) Hematocrit 43.7% (36.0-47.0) Mean Corpuscular Volume 94fL (79-100) Mean Corpuscular Hemoglobin 32pg (25-35) Mean Corpuscular Hemoglobin Concent 34g/dL (31-37) Red Cell Distribution Width 13.6% (11.5-14.5) Platelet Count 289x10^3/uL (140-400) Neutrophils (%) (Auto) 81% (31-73) Lymphocytes (%) (Auto) 10% (24-48) Monocytes (%) (Auto) 8% (0-9) Eosinophils (%) (Auto) 1% (0-3) Basophils (%) (Auto) 1% (0-3) Neutrophils # (Auto) 9.6x10^3uL (1.8-7.7) Lymphocytes # (Auto) 1.1x10^3/uL (1.0-4.8) Monocytes # (Auto) 1.0x10^3/uL (0.0-1.1) Eosinophils # (Auto) 0.1x10^3/uL (0.0-0.7) Basophils # (Auto) 0.1x10^3/uL (0.0-0.2) Sodium Level 139mmol/L (136-145) Potassium Level 3.8mmol/L (3.5-5.1) Chloride Level 101mmol/L (98-107) Carbon Dioxide Level 27mmol/L (21-32) Anion Gap 11 (6-14) Blood Urea Nitrogen 11mg/dL (7-20) Creatinine 0.7mg/dL (0.6-1.0) Estimated GFR (Cockcroft-Gault) 84.0 Glucose Level 135mg/dL (70-99) Calcium Level 9.2mg/dL (8.5-10.1) Troponin I Quantitative 0.542ng/mL (0.000-0.055) 2.563ng/mL (0.000-0.055) 1.130ng/mL (0.000-0.055) Triglycerides Level 174mg/dL (0-150) Cholesterol Level 179mg/dL (0-200) LDL Cholesterol, Calculated 75mg/dL (0-100) VLDL Cholesterol, Calculated 35mg/dL (0-40) HDL Cholesterol 69mg/dL (40-60) Cholesterol/HDL Ratio 2.6 Heparin Anti-Xa Act, Unfractionated 0.21IU/mL (0.30-0.70) Test 10/13/16 04:33 White Blood Count 12.5x10^3/uL (4.0-11.0) Red Blood Count 4.48x10^6/uL (3.50-5.40) Hemoglobin 14.4g/dL (12.0-15.5) Hematocrit 42.3% (36.0-47.0) Mean Corpuscular Volume 95fL (79-100) Mean Corpuscular Hemoglobin 32pg (25-35) Mean Corpuscular Hemoglobin Concent 34g/dL (31-37) Red Cell Distribution Width 13.7% (11.5-14.5) Platelet Count 279x10^3/uL (140-400) Neutrophils (%) (Auto) 79% (31-73) Lymphocytes (%) (Auto) 12% (24-48) Monocytes (%) (Auto) 8% (0-9) Eosinophils (%) (Auto) 1% (0-3) Basophils (%) (Auto) 0% (0-3) Neutrophils # (Auto) 9.9x10^3uL (1.8-7.7) Lymphocytes # (Auto) 1.5x10^3/uL (1.0-4.8) Monocytes # (Auto) 0.9x10^3/uL (0.0-1.1) Eosinophils # (Auto) 0.2x10^3/uL (0.0-0.7) Basophils # (Auto) 0.0x10^3/uL (0.0-0.2) Heparin Anti-Xa Act, Unfractionated 0.27IU/mL (0.30-0.70) Sodium Level 142mmol/L (136-145) Potassium Level 4.0mmol/L (3.5-5.1) Chloride Level 106mmol/L (98-107) Carbon Dioxide Level 27mmol/L (21-32) Anion Gap 9 (6-14) Blood Urea Nitrogen 12mg/dL (7-20) Creatinine 0.6mg/dL (0.6-1.0) Estimated GFR (Cockcroft-Gault) 100.3 Glucose Level 143mg/dL (70-99) Calcium Level 8.3mg/dL (8.5-10.1) Laboratory Tests Test 10/12/16 13:05 10/12/16 20:00 10/12/16 21:40 10/13/16 02:07 White Blood Count 11.9x10^3/uL (4.0-11.0) Red Blood Count 4.66x10^6/uL (3.50-5.40) Hemoglobin 15.0g/dL (12.0-15.5) Hematocrit 43.7% (36.0-47.0) Mean Corpuscular Volume 94fL (79-100) Mean Corpuscular Hemoglobin 32pg (25-35) Mean Corpuscular Hemoglobin Concent 34g/dL (31-37) Red Cell Distribution Width 13.6% (11.5-14.5) Platelet Count 289x10^3/uL (140-400) Neutrophils (%) (Auto) 81% (31-73) Lymphocytes (%) (Auto) 10% (24-48) Monocytes (%) (Auto) 8% (0-9) Eosinophils (%) (Auto) 1% (0-3) Basophils (%) (Auto) 1% (0-3) Neutrophils # (Auto) 9.6x10^3uL (1.8-7.7) Lymphocytes # (Auto) 1.1x10^3/uL (1.0-4.8) Monocytes # (Auto) 1.0x10^3/uL (0.0-1.1) Eosinophils # (Auto) 0.1x10^3/uL (0.0-0.7) Basophils # (Auto) 0.1x10^3/uL (0.0-0.2) Sodium Level 139mmol/L (136-145) Potassium Level 3.8mmol/L (3.5-5.1) Chloride Level 101mmol/L (98-107) Carbon Dioxide Level 27mmol/L (21-32) Anion Gap 11 (6-14) Blood Urea Nitrogen 11mg/dL (7-20) Creatinine 0.7mg/dL (0.6-1.0) Estimated GFR (Cockcroft-Gault) 84.0 Glucose Level 135mg/dL (70-99) Calcium Level 9.2mg/dL (8.5-10.1) Troponin I Quantitative 0.542ng/mL (0.000-0.055) 2.563ng/mL (0.000-0.055) 1.130ng/mL (0.000-0.055) Triglycerides Level 174mg/dL (0-150) Cholesterol Level 179mg/dL (0-200) LDL Cholesterol, Calculated 75mg/dL (0-100) VLDL Cholesterol, Calculated 35mg/dL (0-40) HDL Cholesterol 69mg/dL (40-60) Cholesterol/HDL Ratio 2.6 Heparin Anti-Xa Act, Unfractionated 0.21IU/mL (0.30-0.70) Test 10/13/16 04:33 White Blood Count 12.5x10^3/uL (4.0-11.0) Red Blood Count 4.48x10^6/uL (3.50-5.40) Hemoglobin 14.4g/dL (12.0-15.5) Hematocrit 42.3% (36.0-47.0) Mean Corpuscular Volume 95fL (79-100) Mean Corpuscular Hemoglobin 32pg (25-35) Mean Corpuscular Hemoglobin Concent 34g/dL (31-37) Red Cell Distribution Width 13.7% (11.5-14.5) Platelet Count 279x10^3/uL (140-400) Neutrophils (%) (Auto) 79% (31-73) Lymphocytes (%) (Auto) 12% (24-48) Monocytes (%) (Auto) 8% (0-9) Eosinophils (%) (Auto) 1% (0-3) Basophils (%) (Auto) 0% (0-3) Neutrophils # (Auto) 9.9x10^3uL (1.8-7.7) Lymphocytes # (Auto) 1.5x10^3/uL (1.0-4.8) Monocytes # (Auto) 0.9x10^3/uL (0.0-1.1) Eosinophils # (Auto) 0.2x10^3/uL (0.0-0.7) Basophils # (Auto) 0.0x10^3/uL (0.0-0.2) Heparin Anti-Xa Act, Unfractionated 0.27IU/mL (0.30-0.70) Sodium Level 142mmol/L (136-145) Potassium Level 4.0mmol/L (3.5-5.1) Chloride Level 106mmol/L (98-107) Carbon Dioxide Level 27mmol/L (21-32) Anion Gap 9 (6-14) Blood Urea Nitrogen 12mg/dL (7-20) Creatinine 0.6mg/dL (0.6-1.0) Estimated GFR (Cockcroft-Gault) 100.3 Glucose Level 143mg/dL (70-99) Calcium Level 8.3mg/dL (8.5-10.1) Medications Current Medications Aspirin 325 mg 325 mg 1X ONCE PO ; Start 10/12/16 at 15:00; Stop 10/12/16 at 15 :01; Status DC Heparin Sodium/ Dextrose 500 ml @ 0 mls/hr CONT PRN IV SEE I/O RECORD Last administered on 10/12/16 16:22; Start 10/12/16 at 16:00 Heparin Sodium (Porcine) 1,300 unit PRN Q6HRS PRN IV FOR UFH LEVEL LESS THAN 0.2 Last administered on 10/12/16 16:19; Start 10/12/16 at 16:00 Ondansetron HCl 4 mg 4 mg PRN Q8HRS PRN IV NAUSEA/VOMITING; Start 10/12/16 at 16:00; Stop 10/12/16 at 16:10; Status DC Sodium Chloride (Iv Sodium Chloride 0.9% 1000ml Bag) 1,000 ml @ 100 mls/hr Q10H IV Last administered on 10/12/16 21:45; Start 10/12/16 at 16:30; Stop at 16:29 Acetaminophen (Tylenol) 650 mg PRN Q4HRS PRN PO FEVER; Start 10/12/16 at 16:00 ; Stop 10/13/16 at 11:06; Status DC Nitroglycerin (Nitrostat) 0.4 mg PRN Q5MIN PRN SL CHEST PAIN; Start 10/12/16 at 16:00; Stop 10/13/16 at 11:06; Status DC Info (Anti-Coagulation Monitoring By Pharmacy) 1 each PRN DAILY PRN MC SEE COMMENTS Last administered on 10/13/16 10:30; Start 10/12/16 at 16:00 Ondansetron HCl (Zofran) 4 mg PRN Q6HRS PRN IV NAUSEA/VOMITING; Start 10/12/16 at 16:07 Acetaminophen/ Hydrocodone Bitart (Lortab 5/325) 1 tab PRN TID PRN PO pain; Start 10/12/16 at 16:15 Morphine Sulfate 2 mg PRN Q2HR PRN IV pain; Start 10/12/16 at 16:15 Docusate Sodium (Colace) 100 mg DAILY PO ; Start 10/13/16 at 09:00 Metoprolol Tartrate 12.5 mg 12.5 mg BID PO Last administered on 10/13/16 09:17 ; Start 10/12/16 at 21:00 Heparin Sodium/ Sodium Chloride 1,000 ml @ As Directed STK-MED ONCE .ROUTE ; Start 10/13/16 at 08:36; Stop 10/13/16 at 08:37; Status DC Lidocaine HCl 20 ml STK-MED ONCE .ROUTE ; Start 10/13/16 at 08:36; Stop at 08:37; Status DC Iohexol (Omnipaque 300 Mg/ml) 100 ml STK-MED ONCE .ROUTE ; Start 10/13/16 at 08: 36; Stop 10/13/16 at 08:37; Status DC Nitroglycerin (Nitroglycerin) 200 mcg STK-MED ONCE .ROUTE ; Start 10/13/16 at 09 :26; Stop 10/13/16 at 09:27; Status DC Verapamil HCl (Verapamil) 5 mg STK-MED ONCE .ROUTE ; Start 10/13/16 at 09:26; Stop 10/13/16 at 09:27; Status DC Heparin Sodium (Porcine) 10,000 unit STK-MED ONCE .ROUTE ; Start 10/13/16 at 09: 26; Stop 10/13/16 at 09:27; Status DC Midazolam HCl (Versed) 5 mg STK-MED ONCE .ROUTE ; Start 10/13/16 at 09:26; Stop 10/13/16 at 09:27; Status DC Fentanyl Citrate (Fentanyl 5ml Vial) 250 mcg STK-MED ONCE .ROUTE ; Start at 09:26; Stop 10/13/16 at 09:27; Status DC Nitroglycerin (Nitroglycerin) 200 mcg 1X ONCE IART Last administered on 09:45; Start 10/13/16 at 09:45; Stop 10/13/16 at 09:47; Status DC Verapamil HCl (Verapamil) 2.5 mg 1X ONCE IART Last administered on 10/13/16 09:45; Start 10/13/16 at 09:45; Stop 10/13/16 at 09:47; Status DC Heparin Sodium (Porcine) 2,500 unit 1X ONCE IART Last administered on 09:45; Start 10/13/16 at 09:45; Stop 10/13/16 at 09:47; Status DC Heparin Sodium/ Sodium Chloride 1,000 unit 1X ONCE IART Last administered on 09:45; Start 10/13/16 at 09:45; Stop 10/13/16 at 09:47; Status DC Midazolam HCl (Versed) 5 mg 1X ONCE IV Last administered on 10/13/16 09:45; Start 10/13/16 at 09:45; Stop 10/13/16 at 09:47; Status DC Fentanyl Citrate (Fentanyl 5ml Vial) 250 mcg 1X ONCE IV Last administered on 09:45; Start 10/13/16 at 09:45; Stop 10/13/16 at 09:47; Status DC Lidocaine HCl 20 ml 1X ONCE IJ Last administered on 10/13/16 09:45; Start at 09:45; Stop 10/13/16 at 09:47; Status DC Bivalirudin (Angiomax) 250 mg STK-MED ONCE IV ; Start 10/13/16 at 10:00; Stop at 10:01; Status DC Bivalirudin (Angiomax) 250 mg 1X ONCE IV Last administered on 10/13/16 10:15 ; Start 10/13/16 at 10:15; Stop 10/13/16 at 10:16; Status DC Nitroglycerin (Nitroglycerin) 200 mcg STK-MED ONCE .ROUTE ; Start 10/13/16 at 10 :38; Stop 10/13/16 at 10:39; Status DC Nitroglycerin (Nitroglycerin) 200 mcg 1X ONCE IART Last administered on 10:44; Start 10/13/16 at 10:45; Stop 10/13/16 at 10:46; Status DC Nitroglycerin (Nitroglycerin) 200 mcg STK-MED ONCE .ROUTE ; Start 10/13/16 at 10 :45; Stop 10/13/16 at 10:46; Status DC Iohexol (Omnipaque 300 Mg/ml) 100 ml STK-MED ONCE .ROUTE ; Start 10/13/16 at 10: 45; Stop 10/13/16 at 10:46; Status DC Iohexol (Omnipaque 300 Mg/ml) 100 ml 1X ONCE IART Last administered on 10:57; Start 10/13/16 at 11:00; Stop 10/13/16 at 11:01; Status DC Info (Do NOT chart on this entry -- for MONITORING) 1 each PRN DAILY PRN MC SEE COMMENTS; Start 10/13/16 at 11:00; Stop 10/15/16 at 10:59 Aspirin (Tarsha Aspirin) 325 mg STK-MED ONCE .ROUTE ; Start 10/13/16 at 10:50; Stop 10/13/16 at 10:51; Status DC Clopidogrel Bisulfate (Plavix) 75 mg STK-MED ONCE .ROUTE ; Start 10/13/16 at 10: 50; Stop 10/13/16 at 10:51; Status DC Clopidogrel Bisulfate (Plavix) 600 mg 1X ONCE PO Last administered on 10:57; Start 10/13/16 at 11:15; Stop 10/13/16 at 11:16; Status DC Aspirin 325 mg 325 mg 1X ONCE PO Last administered on 10/13/16 10:56; Start 10/13/16 at 11:15; Stop 10/13/16 at 11:16; Status DC Sodium Chloride (Iv Sodium Chloride 0.45%) 1,000 ml @ 75 mls/hr [id number] IV ; Start 10/13/16 at 11:02 Aspirin (Ecotrin) 325 mg DAILYWBKFT PO ; Start 10/14/16 at 08:00 Clopidogrel Bisulfate (Plavix) 75 mg DAILYWBKFT PO ; Start 10/14/16 at 08:00 Atorvastatin Calcium (Lipitor) 20 mg QHS PO ; Start 10/13/16 at 21:00 Acetaminophen (Tylenol) 650 mg PRN Q6HRS PRN PO MILD PAIN / TEMP; Start at 11:15 Nitroglycerin (Nitrostat) 0.4 mg PRN Q5MIN PRN SL CHEST PAIN; Start 10/13/16 at 11:15 Active Scripts Active Reported No Known Medications Prior To Admisstion (Info) Each 1 Each Vitals/I & O Vital Sign - Last 24 Hours 10/12/16 10/12/16 10/12/16 10/12/16 14:51 15:30 16:00 20:00 Temp 98.0 98.0 98.0 98.0 Pulse 70 70 74 Resp 18 18 17 16 B/P 127/72 122/67 128/64 165/70 Pulse Ox 96 95 95 96 O2 Delivery Room Air Room Air Room Air Room Air 10/12/16 10/12/16 10/12/16 10/12/16 20:15 20:15 21:45 23:50 Temp 98.6 98.6 Pulse 60 70 Resp 31 B/P 165/70 122/52 Pulse Ox 95 O2 Delivery Room Air Room Air Room Air 10/13/16 10/13/16 10/13/16 10/13/16 02:49 07:00 09:17 09:45 Temp 98.5 97.7 98.5 97.7 Pulse 60 60 60 67 Resp 20 18 B/P 116/56 116/59 116/59 138/65 Pulse Ox 94 97 O2 Delivery Room Air Room Air 10/13/16 10/13/16 10/13/16 09:45 10:53 11:18 Temp 97.4 97.4 Pulse 58 58 Resp 16 16 18 B/P 135/63 Pulse Ox 97 97 96 O2 Delivery Room Air Room Air Room Air Intake and Output 10/12/16 10/12/16 10/13/16 15:00 23:00 07:00 Intake Total 400 ml 1200 ml Output Total 1050 ml Balance 400 ml 150 ml DAVIN DUKES MD Oct 13, 2016 11:53
--- NOTE | 2016-10-13 15:29 | CARD ---
APPROVED REPORT Procedure(s) performed: 1. Left heart catheterization, selective coronary angiography and left ventr iculography via right transradial approach 2. Successful PCI/drug eluting stent placement to the left anterior descending artery INDICATION The indication(s) include : non-STEMI . PROCEDURE NARRATIVE After explaining the risks, benefits and alternative options, informed consent was obtained from ton ent. Patient was brought to the cardiac Director [facility] and right wrist was prepped and draped in the usual fashion after confirming a positive modified Chalo's test. Arterial access was obtained in the [facility] radial artery and a 6 Armenian sheath was inserted. 6 Armenian Ford catheter was used to perform elda ective angiography of the left and right coronary arteries. 6 Armenian pigtail catheter was used to pe rform left ventriculography. The following findings were noted. FINDINGS 1. Hemodynamics: Left ventricular end-diastolic pressure of 30 mmHg. No pullback gradient across th e aortic valve. 2. Left ventriculography: Severe hypokinesis of mid to distal anterior wall and apical wall with eje ction fraction estimated at 35-40%. No significant mitral regurgitation seen. 3. Coronary angiography: a. The left main coronary artery arose from the left sinus of Valsalva, gave rise to the left anteri or descending and left circumflex arteries and did not show any significant stenosis. b. There is a dual left anterior descending artery system with the major caliber vessel showing 90% stenosis with thrombus involving the mid to distal segment. c. The left circumflex artery did not show any significant stenosis. d. The right coronary artery was a large and dominant vessel arising from the right sinus of Valsalv a that did not show any significant stenosis. INTERVENTION The left main coronary artery was engaged with a 6 Armenian XB 3.5 guide catheter and the stenosis in t he mid to distal segment of the left anterior descending artery was crossed with a 0.014 inch [employer] p ro-water guidewire. This was dilated with a 2.5 x 8 mm trek balloon. Since the tortuosity just dist al to the lesion was making it difficult to deliver stent across the lesion, backup support was obtai chucho from a 6 Armenian guideliner catheter with the tip positioned just proximal to the lesion. The emery nosis was then successfully treated with overlapping 2.5 x 14 and 2.5 x 12 mm resolute drug eluting s tents. Follow-up angiography showed resolution of the stenosis to 0%. There appeared to be a small intimal flap from wire dissection distally but since patient was chest pain-free without any new EKG changes and since it was difficult to deliver wire and balloons across a very tortuous segment just d istal to the lesion, we decided to manage this medically. Patient tolerated the procedure well. Hem ostasis was achieved using TR band. There were no immediate complications. Conclusion 1. Severe single-vessel coronary artery disease involving the left anterior descending artery 2. Severe hypokinesis of mid to distal anterior wall and apical wall with ejection fraction estimate d at 35-40%. 3. No significant mitral regurgitation or aortic stenosis. Recommendations 1. Aspirin 325 mg daily 2. Plavix 75 mg daily for preferably one year 3. Cardiovascular risk factor modification.
--- NOTE | 2016-10-13 16:11 | CARD ---
APPROVED REPORT EXAM: Two-dimensional and M-mode echocardiogram with Doppler and color Doppler. Other Information Quality : Average Rhythm : NSR INDICATION Non STEMI 2D DIMENSIONS Left Atrium(2D)2.6 (1.6-4.0cm)IVSd1.2 (0.7-1.1cm) Aortic Root(2D)2.8 (2.0-3.7cm)LVDd4.4 (3.9-5.9cm) LVOT Diameter2.1 (1.8-2.4cm)PWd1.1 (0.7-1.1cm) LVDs3.7 (2.5-4.0cm)FS (%) 15.5 % SV29.0 mlLVEF(%)32.9 (>50%) Aortic Valve AoV Peak Bryan.85.8cm/sAoV VTI22.4cm AO Peak GR.2.9mmHgLVOT VTI 16.83cm AO Mean GR.2mmHg Mitral Valve MV E Shhwzvjz11.0cm/sMV E Peak Gr.1mmHg MV DECEL [id number] A Eqotjsjg63.8cm/s MV FGL41loY/A Ratio1.1 MV A [id number] (PHT)3.67cm2 TDI Lateral E' P. V8.59cm/sMedial E' P. V6.81cm/s E/Lateral E'7.0E/Medial E'8.8 Tricuspid Valve TR P. Ozzooqox259tk/sRAP [id number] TR Peak Gr.[id number] LEFT VENTRICLE The left ventricle is normal size. There is normal left ventricular wall thickness. The Ejection Frac tion is 35%. Severe hypokinesis of mid to distal anterior and anteroseptal hernandez and apical wall. Tis barbara Doppler imaging reveals mild left ventricular diastolic dysfunction. Transmitral Doppler flow pat tern is Grade I-abnormal relaxation pattern. RIGHT VENTRICLE The right ventricle is normal size. The right ventricular systolic function is normal. ATRIA The left atrium size is normal. The right atrium size is normal. The interatrial septum is intact wit h no evidence for an atrial septal defect or patent foramen ovale as noted on 2-D or Doppler imaging. AORTIC VALVE The aortic valve is normal in structure and function. The aortic valve is trileaflet. Doppler and Col or Flow revealed no significant aortic regurgitation. There is no significant aortic valvular stenosi s. MITRAL VALVE The mitral valve is normal in structure and function. There is no mitral valve stenosis. Doppler and Color Flow revealed mild mitral regurgitation. TRICUSPID VALVE The tricuspid valve is not well visualized. Doppler and Color Flow revealed mild tricuspid regurgitat ion. The PA pressure was estimated at 21 mmHg. There is no tricuspid valve stenosis. PULMONIC VALVE The pulmonic valve is not well visualized. Doppler and Color Flow revealed no pulmonic valvular regur gitation. There is no pulmonic valvular stenosis. GREAT VESSELS The aortic root is normal in size. The IVC is normal in size and collapses >50% with inspiration. PERICARDIAL EFFUSION There is no evidence of significant pericardial effusion. Critical Notification Critical Value: No <Conclusion> Severe hypokinesis of mid to distal anterior and anteroseptal hernandez and apical wall. The Ejection Fraction is 35%. Transmitral Doppler flow pattern is Grade I-abnormal relaxation pattern. Mild mitral regurgitation. Mild tricuspid regurgitation. The PA pressure was estimated at 21 mmHg. There is no evidence of significant pericardial effusion.
[2016-10-13] MEDS ORDERED: ATORVASTATIN CALCIUM 20 MG TABLET PO SCH (21:00)
[2016-10-13] MEDS: HEPARIN 25,000UTS/500ML PREMIX 500 ML IV PRN (21:50)
[2016-10-14 03:00] VITALS: BP 113/59
[2016-10-14 07:00] VITALS: BP 132/67
[2016-10-14] MEDS ORDERED: CLOPIDOGREL BISULFATE 75 MG TABLET PO SCH (08:00)
[2016-10-14] MEDS ORDERED: ASPIRIN ENTERIC COATED 325 MG TABLET.DR. PO SCH (08:00)
[2016-10-14] MEDS: METOPROLOL TART IMMED RELEASE 25 MG TABLET PO SCH (08:34)
[2016-10-14] MEDS: ANTI-COAG MONITOR BY PHARMACY. MC PRN (08:53)
[2016-10-14] MEDS: DOCUSATE SODIUM 100 MG CAPSULE PO SCH (09:00)
[2016-10-14] MEDS ORDERED: ATOR20TA PO (10:42)
[2016-10-14] MEDS ORDERED: CLOP75TA PO (10:42)
[2016-10-14] MEDS ORDERED: METO25TA4 PO (10:42)
--- NOTE | 2016-10-14 10:44 | PDOC3 ---
Discharge Summary Visit Information Date of Admission: Oct 12, 2016 Date of Discharge: Oct 14, 2016 Admitting Diagnosis Comment: 1. Unstable Angina 2. CAD s/p PCI 2 stents to LAD (10/13) 3. Hyper TG Final Diagnosis Problems Medical Problems: (1) CAD (coronary artery disease) Status: Acute (2) Chest pain Status: Acute (3) NSTEMI (non-ST elevated myocardial infarction) Status: Acute Brief Hospital Course Allergies Allergies Coded Allergies Type Severity Reaction Last Updated Verified Sulfa (Sulfonamide Antibiotics) Allergy Intermediate 10/12/16 Yes cephalexin Allergy Unknown 10/13/16 Yes milk Allergy Unknown 10/13/16 Yes Vital Signs Vital Signs Date Time Temp Pulse Resp B/P Pulse Ox O2 Delivery O2 Flow Rate FiO2 10/14/16 08:34 69 132/67 10/14/16 07:00 97.6 18 95 Room Air 97.6 Lab Results Laboratory Tests Test 10/12/16 13:05 10/12/16 20:00 10/12/16 21:40 10/13/16 02:07 White Blood Count 11.9x10^3/uL (4.0-11.0) Red Blood Count 4.66x10^6/uL (3.50-5.40) Hemoglobin 15.0g/dL (12.0-15.5) Hematocrit 43.7% (36.0-47.0) Mean Corpuscular Volume 94fL (79-100) Mean Corpuscular Hemoglobin 32pg (25-35) Mean Corpuscular Hemoglobin Concent 34g/dL (31-37) Red Cell Distribution Width 13.6% (11.5-14.5) Platelet Count 289x10^3/uL (140-400) Neutrophils (%) (Auto) 81% (31-73) Lymphocytes (%) (Auto) 10% (24-48) Monocytes (%) (Auto) 8% (0-9) Eosinophils (%) (Auto) 1% (0-3) Basophils (%) (Auto) 1% (0-3) Neutrophils # (Auto) 9.6x10^3uL (1.8-7.7) Lymphocytes # (Auto) 1.1x10^3/uL (1.0-4.8) Monocytes # (Auto) 1.0x10^3/uL (0.0-1.1) Eosinophils # (Auto) 0.1x10^3/uL (0.0-0.7) Basophils # (Auto) 0.1x10^3/uL (0.0-0.2) Sodium Level 139mmol/L (136-145) Potassium Level 3.8mmol/L (3.5-5.1) Chloride Level 101mmol/L (98-107) Carbon Dioxide Level 27mmol/L (21-32) Anion Gap 11 (6-14) Blood Urea Nitrogen 11mg/dL (7-20) Creatinine 0.7mg/dL (0.6-1.0) Estimated GFR (Cockcroft-Gault) 84.0 Glucose Level 135mg/dL (70-99) Calcium Level 9.2mg/dL (8.5-10.1) Troponin I Quantitative 0.542ng/mL (0.000-0.055) 2.563ng/mL (0.000-0.055) 1.130ng/mL (0.000-0.055) Triglycerides Level 174mg/dL (0-150) Cholesterol Level 179mg/dL (0-200) LDL Cholesterol, Calculated 75mg/dL (0-100) VLDL Cholesterol, Calculated 35mg/dL (0-40) HDL Cholesterol 69mg/dL (40-60) Cholesterol/HDL Ratio 2.6 Heparin Anti-Xa Act, Unfractionated 0.21IU/mL (0.30-0.70) Test 10/13/16 04:33 10/13/16 11:30 10/13/16 19:15 10/14/16 04:55 White Blood Count 12.5x10^3/uL (4.0-11.0) Red Blood Count 4.48x10^6/uL (3.50-5.40) Hemoglobin 14.4g/dL (12.0-15.5) Hematocrit 42.3% (36.0-47.0) Mean Corpuscular Volume 95fL (79-100) Mean Corpuscular Hemoglobin 32pg (25-35) Mean Corpuscular Hemoglobin Concent 34g/dL (31-37) Red Cell Distribution Width 13.7% (11.5-14.5) Platelet Count 279x10^3/uL (140-400) Neutrophils (%) (Auto) 79% (31-73) Lymphocytes (%) (Auto) 12% (24-48) Monocytes (%) (Auto) 8% (0-9) Eosinophils (%) (Auto) 1% (0-3) Basophils (%) (Auto) 0% (0-3) Neutrophils # (Auto) 9.9x10^3uL (1.8-7.7) Lymphocytes # (Auto) 1.5x10^3/uL (1.0-4.8) Monocytes # (Auto) 0.9x10^3/uL (0.0-1.1) Eosinophils # (Auto) 0.2x10^3/uL (0.0-0.7) Basophils # (Auto) 0.0x10^3/uL (0.0-0.2) Heparin Anti-Xa Act, Unfractionated 0.27IU/mL (0.30-0.70) 0.51IU/mL (0.30-0.70) 0.46IU/mL (0.30-0.70) 0.40IU/mL (0.30-0.70) Sodium Level 142mmol/L (136-145) Potassium Level 4.0mmol/L (3.5-5.1) Chloride Level 106mmol/L (98-107) Carbon Dioxide Level 27mmol/L (21-32) Anion Gap 9 (6-14) Blood Urea Nitrogen 12mg/dL (7-20) Creatinine 0.6mg/dL (0.6-1.0) Estimated GFR (Cockcroft-Gault) 100.3 Glucose Level 143mg/dL (70-99) Calcium Level 8.3mg/dL (8.5-10.1) Laboratory Tests Test 10/13/16 11:30 10/13/16 19:15 10/14/16 04:55 Heparin Anti-Xa Act, Unfractionated 0.51IU/mL (0.30-0.70) 0.46IU/mL (0.30-0.70) 0.40IU/mL (0.30-0.70) Brief Hospital Course Ms. Prado is a 66 old female admitted fro CP, high risks tory, trop peaked to 6, cath showed LAD dse, needed 2 stents, NOt taking meds prior to admission, NOw will dc on ASA 325, plavix 75, Lipitor 20, metoprolol 2.5 BID. TG was on high side (170s). Ff up cards as instructed bianca Perez Pt seen and examined Dc tiME 32 mins > 50% Rx, cousELLING etc LUIGI rN Dispo: home Proc: cardiac cath Discharge Information Condition at Discharge: Improved, Stable Follow Up: Weeks (ff up cards as instructed) Disposition/Orders: D/C to Home Miscellaneous Medications Info (No Known Medications Prior To Admisstion) 1 EACH MC (Reported) DAVIN DUKES MD Oct 14, 2016 10:44
[2016-10-14 11:17] VITALS: BP 134/67
--- NOTE | 2016-10-14 11:20 | PDOC ---
HANS DAWSON CERTIFIED ORTHOTIC FITTER 10/14/16 1120: CARDIO Progress Notes Date and Time Date of Service 10/14/16 Time of Evaluation 1115 Subjective Subjective: No Chest Pain, No shortness of breath, No Palpitations Comments: no acute events noted overnight on telemetry Vitals Vitals Vital Signs Date Time Temp Pulse Resp B/P Pulse Ox O2 Delivery O2 Flow Rate FiO2 10/14/16 08:34 69 132/67 10/14/16 07:00 97.6 18 95 Room Air 97.6 Weight Weight [ ] Input and Output Intake and Output Intake and Output 10/14/16 09:00 Intake Total 640 ml Output Total 3075 ml Balance -2435 ml Intake Oral 640 ml Output Urine Total 2850 ml Emesis 225 ml # Voids 1 # Bowel Movements 1 Laboratory Labs Laboratory Tests Test 10/13/16 11:30 10/13/16 19:15 10/14/16 04:55 Heparin Anti-Xa Act, Unfractionated 0.51IU/mL (0.30-0.70) 0.46IU/mL (0.30-0.70) 0.40IU/mL (0.30-0.70) Physical Exam HEENT: Neck Supple W Full Motion Chest: Symmetric Heart: RRR Extremities: No Edema, Other (right radial arteriotomy site CDI. neurovascular status intact) Neurology: alert, oriented, follow commands Assessment Assessment 1. NSTEMI 2. CAD 4. Ischemic cardiomyopathy 5. HTN 6. HLP. Recommendations Will add low-dose GREG for optimization therapy. 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 Will need repeat echo in 3 months to re-assess LV function/assess need for AICD in prevention of SCD. Contact information provided; patient to call with any questions/concerns in the meantime. Risk stratification modification Cardiac rehab BETINA BROCK MD 10/14/16 1337: CARDIO Progress Notes Assessment Assessment Patient seen and examined. Agree with EVENING SITTER's assessment and plan. s/p PCI/CHRISTINA to LAD presently chest pain-free. Ischemic cardiomyopathy clinically well compensated. Telemetry did not show any significant arrhythmias. Agree with adding ACEI to optimize therapy for cardiomyopathy. Continue dual antiplatelet therapy. Okay for discharge from cardiac standpoint. Follow-up with frontload driver in [place] within 2-4 weeks. HANS DAWSON APRN Oct 14, 2016 11:20 BETINA BROCK MD Oct 14, 2016 13:37
[2016-10-14] MEDS ORDERED: LISI2.5T PO (11:49)
[2016-10-14 11:52] VITALS: BP 134/67
[2016-10-14] MEDS ORDERED: ASPI325T11 PO (11:58)
[2016-10-14] MEDS ORDERED: LISINOPRIL 2.5 MG TABLET PO SCH (12:15)
== END 2016-10-14 14:00 | disposition home or self-care (01) | DRG 247 ==
LOC: ER 14:43 → ED HOLD 15:28 → 2 SOUTH 19:31
PROVIDERS: ADMIT Internal Medicine; ATTEND Internal Medicine
PROC: 027035Z Dilation of Coronary Artery, One Artery with Two Drug-eluting Intraluminal Devices, Percutaneous Approach (ICD-10-PCS; principal; 2016-10-13)
PROC: 4A023N7 Measurement of Cardiac Sampling and Pressure, Left Heart, Percutaneous Approach (ICD-10-PCS; 2016-10-13)
PROC: B2111ZZ Fluoroscopy of Multiple Coronary Arteries using Low Osmolar Contrast (ICD-10-PCS; 2016-10-13)
PROC: B2151ZZ Fluoroscopy of Left Heart using Low Osmolar Contrast (ICD-10-PCS; 2016-10-13)
DX: I21.4 Non-ST elevation (NSTEMI) myocardial infarction (principal); E78.5 Hyperlipidemia, unspecified; I10 Essential (primary) hypertension; I25.110 Atherosclerotic heart disease of native coronary artery with unstable angina pectoris; M19.90 Unspecified osteoarthritis, unspecified site; F17.200 Nicotine dependence, unspecified, uncomplicated; I25.5 Ischemic cardiomyopathy; Z82.49 Family history of ischemic heart disease and other diseases of the circulatory system; Z83.3 Family history of diabetes mellitus; Z90.49 Acquired absence of other specified parts of digestive tract; Z98.61 Coronary angioplasty status; Z89.421 Acquired absence of other right toe(s); Z88.2 Allergy status to sulfonamides; Z88.1 Allergy status to other antibiotic agents; Z91.011 Allergy to milk products
CPT/HCPCS: 36415; 71010; 80048; 80061; 84484; 85027; 85520; 92928; 93005; 93306; 93458; 96374; 99406; C1725; C1769; C1874; C1887; J0583; J2250; J3010; J3490; J7030; Q9967; 99285-25